=== PATIENT | female | born 1955 | race Caucasian/White ===

== ENCOUNTER 2016-11-17 11:43 | Emergency (ER) | payer MEDICAID ==
--- NOTE | 2016-11-17 11:57 | ED.PDOC ---
History of Present Illness - General Chief Complaint: Respiratory Problem Stated Complaint: evaluation per nsg home Time Seen by Provider: 11/17/16 11:56 Source: RN notes reviewed, Vital Signs reviewed, EMS notes reviewed Exam Limitations: clinical condition, language barrier - with tracheostomy / ventilaror dependent, physical impairment Additional Information: EMS was called at [facility] to see this patient 61 y/o female ventilator dependent coughing and difficulty breathing and on ems arrival one of the nurses was perfoming cpr -chest compression but patient just keeps moving not wanting cpr since she was awake ,alert but non verbal due to her tracheostomy.Initially she was being suctioned by respiratory therapist and monitor showing patient becoming more bradycardic and suctioning discontinued chest compression was then started but patient got more agitated and chest compression was discontinued and patient felt better but was sent here for further evaluation. - History of Present Illness Timing/Duration: 1-3 hours Severity: moderate Improving Factors: other - suctioning of secretions Worsening Factors: other - she is ventilator deoendent due to chronic respiratory failure Associated Symptoms: denies symptoms Allergies/Adverse Reactions: Allergies NO KNOWN ALLERGY Allergy (Verified 11/17/16 12:44) Home Medications: Ambulatory Orders Amoxicillin & Pot Clavulanate [Augmentin Xr 1000-62.5 mg] 1 tab PO BID #20 tab 11/17/16 Review of Systems - Review of Systems Unable to Obtain Due To: condition, clinical condition Past Medical History (General) - Patient Medical History Hx Other PMH: Yes - ventilator dependent ,chronic respiratory failure Physical Exam - Physical Exam General Appearance: Alert, Comfortable, No apparent distress Ears, Nose, Throat: other - tracheostomy tube intact,dry oral mucosa Respiratory: chest non-tender, lungs clear, no respiratory distress, no accessory muscle use, other - coarse BS Cardiovascular/Chest: normal peripheral pulses, regular rate, rhythm, no edema, no gallop, no JVD, no murmur Peripheral Pulses: radial,right: 2+, radial,left: 2+ Gastrointestinal/Abdominal: normal bowel sounds, non tender, soft, no organomegaly, other - peg tube patent Back Exam: normal inspection, no vertebral tenderness Extremity: non-tender, normal inspection, no pedal edema Neurologic: alert, aphasia, motor weakness - right hemiparesis was ask if she had stroke and patient nod her head, depressed affect, other - follows commands, Skin Exam: normal color, warm/dry Lymphatic: no adenopathy Progress - Progress Progress: 11/17/16 12:49 tracheostomy cuff replaced - EKG/XRAY/CT XRAY: chest - left moderate sized infiltrate or atelectasis mid and lower lung Departure - Departure Clinical Impression: Ventilator dependent, CVA, old, hemiparesis, Vaso-vagal reaction Chronic respiratory failure, unspecified whether with hypoxia or hypercapnia Qualifiers: Respiratory failure complication: unspecified whether with hypoxia or hypercapnia Qualifier Code: (J96.10) Chronic respiratory failure, unspecified whether with hypoxia or hypercapnia Time of Disposition: 12:51 Disposition: Transfer to SNF Condition: Fair Departure Forms: ED Discharge - Pt. Copy, Patient Portal Self Enrollment Prescriptions: Amoxicillin & Pot Clavulanate [Augmentin Xr 1000-62.5 mg] 1 tab PO BID #20 tab Home Medications: Ambulatory Orders Amoxicillin & Pot Clavulanate [Augmentin Xr 1000-62.5 mg] 1 tab PO BID #20 tab 11/17/16 Additional Instructions: RETURN TO EMERGENCY ROOM NEEDED
--- NOTE | 2016-11-17 12:28 | RAD ---
EXAM DESCRIPTION: X-RAY CHEST- ONE VIEW CLINICAL HISTORY: Cough COMPARISON: 11/15/2016 TECHNIQUE: Single view of the chest. FINDINGS: Note is again made of a tracheostomy There is interval development of moderate-sized left mid and lower lung zone infiltrates/atelectasis There is no pleural effusion There are no pneumothoraces. The cardiomediastinal silhouette is stable. IMPRESSION: There is interval development of moderate-sized left mid and lower lung zone infiltrates/atelectasis. Electronically signed by: Mc Garcia MD 11/17/2016 12:26
[2016-11-17 13:54] VITALS: BP 108/76; TEMP 97.3; O2SAT 98
== END 2016-11-17 13:44 ==
LOC: ER 11:45
DX: R55 Syncope and collapse (principal); Z99.11 Dependence on respirator [ventilator] status; J96.10 Chronic respiratory failure, unspecified whether with hypoxia or hypercapnia; I69.359 Hemiplegia and hemiparesis following cerebral infarction affecting unspecified side